=== PATIENT | male | born 1945 | race Caucasian/White ===

== ENCOUNTER 2021-12-19 06:01 | Inpatient (IN) | payer OTHER, MEDICARE ==
[~2021-12-19] VITALS: Ht 175.3 cm; Wt 85.0 kg
[~2021-12-19 06:01] MED LIST: ASPI325 PO; ATEN50 PO; CEPH500 PO; Percocet 5-3251 EACH PO; SIMV40 PO
[2021-12-19 06:19] LABS: BASOPHILS ABSOLUTE AUTO 0.14 K/mm3 (0.00-0.23); BASOPHILS PERCENT AUTO 1 % (0-2); EOSINOPHILS ABSOLUTE AUTO 0.24 K/mm3 (0.00-0.68); EOSINOPHILS PERCENT AUTO 1 % (0-6); Hematocrit 44.9 % (37.0-53.0); Hemoglobin 15.6 g/dL (13.5-17.5); IMMATURE GRAN ABSOLUTE AUTO 0.12 K/mm3 (0.00-0.10); IMMATURE GRAN PERCENT AUTO 1 % (0-1); LYMPHOCYTES ABSOLUTE AUTO 1.82 K/mm3 (0.84-5.20); LYMPHOCYTES PERCENT AUTO 8 % (21-46); MONOCYTES ABSOLUTE AUTO 2.04 K/mm3 (0.16-1.47); MONOCYTES PERCENT AUTO 9 % (4-13); Mean Corpuscular HGB 32.5 pg (26.0-34.0); Mean Corpuscular HGB Conc 34.7 g/dL (31.5-36.5); Mean Corpuscular Volume 94 fL (80-100); Mean Platelet Volume 9.1 fL (9.1-12.4); NEUTROPHILS ABSOLUTE AUTO 19.77 K/mm3 (1.96-9.15); NEUTROPHILS PERCENT AUTO 82 % (41-73); Platelet Count 256 K/mm3 (150-400); RDW Standard Deviation 45.1 fL (35.1-46.3); White Blood Cell Count 24.13 K/mm3 (4.00-11.30)
[2021-12-19 06:40] LABS: Albumin, Blood 3.3 g/dL (3.4-5.0); Albumin/Globulin Ratio 0.8 (0.8-1.8); Bilirubin, Total 0.6 mg/dL (0.1-1.0); Bun/Creatinine Ratio 17.9 (12.0-20.0); Calcium, Blood 9.2 mg/dL (8.5-10.1); Creatinine, Blood 1.23 mg/dL (0.60-1.20); Globulin, Blood 4.1 g/dL (2.2-4.0); Potassium, Blood 4.2 mmol/L (3.5-5.5); Total Protein, Blood 7.4 g/dL (6.4-8.2)
[2021-12-19 07:28] LABS: Influenza A, PCR NEGATIVE (NEGATIVE); Influenza B, PCR NEGATIVE (NEGATIVE); Resp Syncytial Virus, PCR NEGATIVE (NEGATIVE); SARS-Cov-2 (COVID-19) PCR, MMC NEGATIVE (NEGATIVE)
[2021-12-19 07:45] LABS: Source, Urine Clean Catch
[2021-12-19 07:53] LABS: Bilirubin, Urine Neg (Neg); Blood, Urine 1+ (Neg); Glucose Qualitative, Urine Neg (Neg); Ketones, Urine Neg (Neg); Leukocyte Esterase, Urine 3+ (Neg); Nitrite, Urine Neg (Neg); Protein, Urine 1+ (Neg); Urobilinogen, Urine NORM (Normal)
[2021-12-19 08:04] LABS: Appearance, Urine Hazy (Clear); Bacteria Mod /hpf; Color, Urine Yellow (P-Yellow); Squamous Epithelial Cells Few /hpf (Few); White Blood Cells, Urine 25-50 /hpf (0-5)
[2021-12-19 09:45] LABS: Bicarbonate Venous 25.1 mmol/L (24.0-30.0); PCO2 Venous 46.8 mmHg (38-42); pH Blood Venous 7.37 (7.34-7.37)
--- NOTE | 2021-12-19 16:28 | NUR ---
1127- PT ADMITTED TO ROOM 336 FROM ED, STRETCHER TO BED TX. PT CONFUSED AND WANTS TO GO HOME. ORIENTED TO ROOM SET UP AND SAFETY. AT BEDSIDE BUT GOING HOME TO LET DOGS OUT. PT IS FORGETFUL AND CONT ASKING WHERE IS. ATTEMPTS TO GET OOB, AND REMINDED HE NEEDS TO ASK FOR HELP. SETTING BED ALARM. WILL JOSE MARIA CLOSELY.
--- NOTE | 2021-12-19 17:47 | NUR ---
SUMMARY- PT UP IN THE CHAIR MOST OF THE DAY- CHAIR ALARM SET OFF FEQ- PT IMPULSIVE AND FORGETFUL. O2 2L NC. CRACKLES POST LOWER HALF, SATS 96% 2L. AMBULATED IN YUEN 100FT BEFORE DINNER TO HELP GET HIS WIGGLES OUT. TOLERATING FOOD AND FLUIDS. HAS HOWE (NORMALLY SELF CATH AT HOME X4-5). FAMILY FREQ IN ROOM SUPPORTIVE IN CARE. HOME FOR THE NIGHT TO CARE FOR ANIMALS AND REST. PT PULLED OUT ONE IV IN L HAND AND DEV A HEMATOMA. BED CHANGED AND FLOOR MOPPED. WILL REPORT TO SPEECH THERAPIST.
[2021-12-19] MEDS ORDERED: Flonase 0.05% N16 GM (21:44)
[2021-12-19] MEDS ORDERED: Calcium Carbon500 MG PO (21:45)
[2021-12-19] MEDS ORDERED: SENN187 PO (21:46)
--- NOTE | 2021-12-20 03:47 | NUR ---
SUMMARY: PT ORIENTED TO SELF AND FAMILY ONLY. HE REMAINS IN KRISHNA VEST FOR CONFUSION, IMPULSIVITY, FALL RISK AND FREQ ATTEMPTS OOB BY SELF. IS AT BEDSIDE BUT ALSO STRUGGLES TO REDIRECT PT. HE PULLED HIS IV OUT, TUGS ON HOWE CATH AND REMOVES NC OFTEN. HE TYPICALLY SELF CATHS QID BUT IS UNABLE TO DO SO AT PRESENT R/T AMS. HOWE REMAINS IN PLACE AND IS PATENT/DRAINING TO GRAVITY. 2L O2 VIA NC IS REQ'D TO MAINTAIN SPO2 WNL BUT PT IS ON RA AT BASELINE. CRACKLES NOTED TO BILAT BASES AND OCC BELT BRANDER HACKING COUGH PERSISTS. LR COMPLETED PER EMAR PRIOR TO PT REMOVING HIS IV BUT IT WILL NEED REPLACED FOR IV ABX ON DAY SHIFT. NO ACUTE CHANGES, VSS/AFEBRILE. WCTM AND REPORT TO DAY RN.
[2021-12-20 05:22] LABS: Hematocrit 42.3 % (37.0-53.0); Hemoglobin 14.6 g/dL (13.5-17.5); Mean Corpuscular HGB 32.4 pg (26.0-34.0); Mean Corpuscular HGB Conc 34.5 g/dL (31.5-36.5); Mean Corpuscular Volume 94 fL (80-100); Mean Platelet Volume 9.2 fL (9.1-12.4); Platelet Count 231 K/mm3 (150-400); RDW Coefficient Variation 13.2 % (11.7-14.2); RDW Standard Deviation 45.2 fL (35.1-46.3); White Blood Cell Count 21.66 K/mm3 (4.00-11.30)
[2021-12-20 05:49] LABS: Bun/Creatinine Ratio 20.8 (12.0-20.0); Calcium, Blood 8.8 mg/dL (8.5-10.1); Creatinine, Blood 1.06 mg/dL (0.60-1.20); Potassium, Blood 4.1 mmol/L (3.5-5.5); Thyroid Stimulating Hormone 0.309 uIU/mL (0.360-4.800)
--- NOTE | 2021-12-20 17:48 | NUR ---
SHIFT SUMMARY PATIENT MEDICATED X1 FOR HEADACHE. PATIENT DENIES NAUSEA AND SHORTNESS OF BREATH. PATIENT ON 2L VIA N/C. PATIENT MAINTAINING SATS ABOVE 90%. PATIENT DID DESAT WITH ACTIVITY WITH PT. PATIENT WORKED WITH PT AND OT TODAY. PT IS RECOMMENDING HOME WITH HOME HEALTH. OT DID A COGNITIVE EVAL, SEE NOTE. PATIENT TAKEN OUT OF RESTRAINTS THIS MORNING. PATIENT A&O 2-3. UNSURE OF DATE, OCASSIONALLY UNSURE OF EVENT. PATIENT EASILY REDIRECTED. PATIENT HAD TO BE REDIRECTED MULTIPLE TIMES AFTER FOUND PULLING ON HOWE AND TAKING OXYGEN OFF. PATIENT AT BEDSIDE FOR MOST OF DAY. PATIENT IS EATING AND DRINKING WELL. PATIENT IS PLEASANT AND COOPERATIVE WITH CARE. NEW IV PLACED. PATIENT VERY PLEASANT AND COOPERATIVE WITH CARE.
[2021-12-21 04:39] LABS: BASOPHILS ABSOLUTE AUTO 0.11 K/mm3 (0.00-0.23); BASOPHILS PERCENT AUTO 1 % (0-2); EOSINOPHILS ABSOLUTE AUTO 0.51 K/mm3 (0.00-0.68); EOSINOPHILS PERCENT AUTO 4 % (0-6); Hematocrit 41.9 % (37.0-53.0); Hemoglobin 14.2 g/dL (13.5-17.5); IMMATURE GRAN ABSOLUTE AUTO 0.05 K/mm3 (0.00-0.10); IMMATURE GRAN PERCENT AUTO 0 % (0-1); LYMPHOCYTES ABSOLUTE AUTO 3.18 K/mm3 (0.84-5.20); LYMPHOCYTES PERCENT AUTO 24 % (21-46); MONOCYTES ABSOLUTE AUTO 1.04 K/mm3 (0.16-1.47); MONOCYTES PERCENT AUTO 8 % (4-13); Mean Corpuscular HGB Conc 33.9 g/dL (31.5-36.5); Mean Corpuscular Volume 94 fL (80-100); Mean Platelet Volume 9.3 fL (9.1-12.4); NEUTROPHILS ABSOLUTE AUTO 8.51 K/mm3 (1.96-9.15); NEUTROPHILS PERCENT AUTO 64 % (41-73); Platelet Count 230 K/mm3 (150-400); RDW Coefficient Variation 13.2 % (11.7-14.2); RDW Standard Deviation 45.7 fL (35.1-46.3); Red Blood Cell Count 4.44 M/mm3 (4.30-5.90)
[2021-12-21 04:58] LABS: Albumin, Blood 2.8 g/dL (3.4-5.0); Anion Gap 5 mmol/L (6-16); Blood Urea Nitrogen 28 mg/dL (8-24); Bun/Creatinine Ratio 23.7 (12.0-20.0); CO2, Blood 27 mmol/L (21-32); Calcium, Blood 8.7 mg/dL (8.5-10.1); Chloride, Blood 107 mmol/L (98-108); Creatinine, Blood 1.18 mg/dL (0.60-1.20); Glomerular Filtration Rate 63 (60-); Glucose, Blood 88 mg/dL (70-99); Phosphorus, Blood 2.5 mg/dL (2.5-4.9); Potassium, Blood 3.8 mmol/L (3.5-5.5); Sodium, Blood 139 mmol/L (136-145)
--- NOTE | 2021-12-21 05:23 | NUR ---
NIGHTSHIFT SUMMARY Patient alert/oriented to self/place/family. Restless in chair, attempting to get OOB w/o help. Staff SBA, while patient walked to BR. Patient standing in bathroom, pulling apart maza, removed stat lock. Replaced statlock, helped patient to the chair. at bedside, appears forgetful, verbalized feeling upset, because we did not help the patient, reminded that nurse helped patient to bed and fixed catheter statlock. states she doesn't remember. Granddaughter at bedside, stated patient usually cares for , but d/t to infection is hospitlized and AMS. Concern for /patient safety d/t AMS. SS consult ordered. Christian vest applied for safety, bed alarm/activated audible, reminded pt/ to use call-light to help patient get OOB. Patient slept comfortably all night, respirations even/nonlabored. Maza catheter patent, draining to gravity. Will continue to monitor.
--- NOTE | 2021-12-21 14:42 | NUR ---
DAUGHTER IN LAW LATHA PATEL [phone], AT BEDSIDE. STEP SON JOE PATEL [phone], AT BEDSIDE. PT GAVE A VERBAL CONSENT FOR MEDICAL STAFF TO SPEAK WITH SHEILA. LATHA REQUESTS A CALL FROM CARE MANAGEMENT TO DISCUSS PT'S INDEPENDENT LIVING SITUATION. LATHA STATES THERE ARE TWO STEPS UP TO FRONT DOOR, TWO STEPS OUT THE BACK DOOR. THERE IS ONE STEP IN THE LIVING ROOM. LEVEL FLOOR TO THE BATHROOM AND THE BEDROOM. RUNNING WATER, ELECTRICITY. BACKUP GENERATOR INSTALLED TO AUTOMATICALLY TURN ON.
--- NOTE | 2021-12-21 17:20 | NUR ---
SHIFT SUMMARY FAMILY AT BEDSIDE FOR SEVERAL HOURS THIS SHIFT. FAMILY IS AWARE OF THE HOSPITAL'S CONCERNS FOR SAFETY AT NIGHT, PT HAS BEEN MORE CONFUSED AT NIGHT THE PAST TWO NOCS IN HOSPITAL. FAMILY STATES LATIA AND HIS ARE IN A SAFE LIVING ARRANGEMENT, INDEPENDENT WITH FAMILY NEARBY. RESTRAINTS WERE DISCONTINUED AT 1030. SINCE THEN, PT HAS ATTEMPTED TO GET OUT OF BED AT LEAST 4 TIMES, BUT THE BED ALARM/CHAIR ALARM HAVE ALERTED STAFF TO INTERVENE. EACH TIME, PT STATES HE DIDN'T KNOW HE HAD TO CALL FOR HELP. MOST RECENTLY, HIS WAS AT BEDSIDE AND HIS STATED SHE DIDN'T KNOW SHE NEEDED TO CALL FOR HELP. PT IS COMPLIANT WITH MEDICATIONS AND TREATMENTS. HE IS ON 2LPM VIA NC, BASELINE IS ROOM AIR. IV IN LEFT AC. RN WILL CONTINUE TO MONITOR AND REPORT TO ONCOMING NURSE.
--- NOTE | 2021-12-22 05:05 | NUR ---
SHIFT SUMMARY: PT A/O X 3, FORGETFUL AND IMPULSIVE AT TIMES. STANDBY ASSIST WITH WALKER DUE TO OXYGEN LINE AND HOWE CATHETER. HOWE DRAINING CLEAR YELLOW URINE. CONTINUES TO BE ON 2 LPM VIA NC. LS CLEAR CONTINUES TO HAVE OCCASIONAL COUGH. PT DENIED PAIN THROUGH THE NIGHT. STAYED THE NIGHT IN ROOM WITH PT. HAD DIFFICULTY ASSISTING HER TO THE BATHROOM AND WAS REQUESTED TO USE CALL LIGHT TO GET ASSISTANCE FOR HER WHEN NEEDED BUT SHE WAS FORGETFUL OF USING CALL LIGHT. WOULD COME OUT TO HALLS TO FIND STAFF.
[2021-12-22 05:06] LABS: Hematocrit 43.5 % (37.0-53.0); Hemoglobin 14.9 g/dL (13.5-17.5); Mean Corpuscular HGB Conc 34.3 g/dL (31.5-36.5); Mean Corpuscular Volume 93 fL (80-100); Mean Platelet Volume 9.3 fL (9.1-12.4); Platelet Count 242 K/mm3 (150-400); RDW Coefficient Variation 12.8 % (11.7-14.2); RDW Standard Deviation 44.5 fL (35.1-46.3); Red Blood Cell Count 4.66 M/mm3 (4.30-5.90); White Blood Cell Count 9.13 K/mm3 (4.00-11.30)
[2021-12-22 05:29] LABS: Anion Gap 8 mmol/L (6-16); Blood Urea Nitrogen 22 mg/dL (8-24); Bun/Creatinine Ratio 20.2 (12.0-20.0); CO2, Blood 26 mmol/L (21-32); Calcium, Blood 8.7 mg/dL (8.5-10.1); Chloride, Blood 105 mmol/L (98-108); Creatinine, Blood 1.09 mg/dL (0.60-1.20); Glomerular Filtration Rate 69 (60-); Glucose, Blood 104 mg/dL (70-99); Phosphorus, Blood 2.7 mg/dL (2.5-4.9); Potassium, Blood 3.9 mmol/L (3.5-5.5); Sodium, Blood 139 mmol/L (136-145)
[2021-12-22] MEDS ORDERED: GUAI600T33 PO (12:24)
[2021-12-22] MEDS ORDERED: FLUTICASONE-SA1 EAC2 INH (12:24)
[2021-12-22] MEDS ORDERED: LEVO750 PO (12:25)
[2021-12-22] MEDS ORDERED: MIRALAX17 GM PO (12:26)
[2021-12-22] MEDS ORDERED: VISBIOME 112.51 EACH (12:27)
[2021-12-22] MEDS ORDERED: THERA-D2000 UNIT PO (12:28)
[2021-12-22] MEDS ORDERED: ALBU90OI INH (12:29)
--- NOTE | 2021-12-22 15:36 | NUR ---
PT DISCHARGED FROM THE UNIT. IV REMOVED. DISCHARGE INSTRUCTIONS REVIEWED AND SENT WITH PT. SHYAM LEFT IN PER DR REQUEST. WILL STAY IN ONE WEEK THEN PT WILL RESUME STRAIGHT CATH AT HOME. HIS AND GRANDAUGHTER WERE AT BEDSIDE DURING DISCHARGE. PT LEFT UNIT VIA WHEEL CHAIR.
== END 2021-12-22 13:41 | disposition home health service (06) | DRG 698 ==
LOC: ER 06:01 → MEDS 08:53
PROVIDERS: Emergency Medicine; Internal Medicine; ADMIT Internal Medicine
DX: T83.511A Infection and inflammatory reaction due to indwelling urethral catheter, initial encounter (principal); G92.8 Other toxic encephalopathy; J96.01 Acute respiratory failure with hypoxia; I67.89 Other cerebrovascular disease; N39.0 Urinary tract infection, site not specified; B95.2 Enterococcus as the cause of diseases classified elsewhere; B96.89 Other specified bacterial agents as the cause of diseases classified elsewhere; J84.10 Pulmonary fibrosis, unspecified; I10 Essential (primary) hypertension; E11.9 Type 2 diabetes mellitus without complications; Y84.6 Urinary catheterization as the cause of abnormal reaction of the patient, or of later complication, without mention of misadventure at the time of the procedure; E86.0 Dehydration; N28.9 Disorder of kidney and ureter, unspecified; Z20.822 Contact with and (suspected) exposure to COVID-19; E78.00 Pure hypercholesterolemia, unspecified; Z79.899 Other long term (current) drug therapy; Z79.82 Long term (current) use of aspirin; Z79.891 Long term (current) use of opiate analgesic; Z79.2 Long term (current) use of antibiotics; Z87.891 Personal history of nicotine dependence
CPT/HCPCS: 0241U; 36415; 51701; 51702; 70450; 71045; 71250; 80048; 80053; 80069; 81001; 82803; 84145; 84443; 84484; 85025; 85027; 87077; 87086; 87186; 93005; 93010; 94640; 94664; 94760; 94761; 96365-59; 96375-59; 97110; 97116; 97129; 97161; 97166; 97530; 99285-25; A9270; J0456; J0696; J1650; J2930; J7030; J7050; J7120

== ENCOUNTER 2023-02-27 17:53 | Inpatient (IN) | payer OTHER ==
[~2023-02-27] VITALS: Ht 177.8 cm; Wt 68.3 kg
[2023-02-27] VITALS (7 sets, daily range): BP systolic 96–112; BP diastolic 47–72
[~2023-02-27 17:53] MED LIST changes: +ALBU90OI INH; +Calcium Carbon500 MG PO; +FLUTICASONE-SA1 EAC2 INH; +Flonase 0.05% N16 GM; +GUAI600T33 PO; +LEVO750 PO; +MIRALAX17 GM PO; +SENN187 PO; +THERA-D2000 UNIT PO; +VISBIOME 112.51 EACH
[2023-02-27 18:32] LABS: BASOPHILS ABSOLUTE AUTO 0.05 K/mm3 (0.00-0.23); BASOPHILS PERCENT AUTO 0 % (0-2); EOSINOPHILS ABSOLUTE AUTO 0.01 K/mm3 (0.00-0.68); EOSINOPHILS PERCENT AUTO 0 % (0-6); Hematocrit 47.1 % (37.0-53.0); Hemoglobin 16.1 g/dL (13.5-17.5); IMMATURE GRAN ABSOLUTE AUTO 0.23 K/mm3 (0.00-0.10); IMMATURE GRAN PERCENT AUTO 1 % (0-1); LYMPHOCYTES ABSOLUTE AUTO 1.14 K/mm3 (0.84-5.20); LYMPHOCYTES PERCENT AUTO 6 % (21-46); MONOCYTES ABSOLUTE AUTO 1.15 K/mm3 (0.16-1.47); MONOCYTES PERCENT AUTO 6 % (4-13); Mean Corpuscular HGB 33.2 pg (26.0-34.0); Mean Corpuscular HGB Conc 34.2 g/dL (31.5-36.5); Mean Corpuscular Volume 97 fL (80-100); Mean Platelet Volume 9.2 fL (9.1-12.4); NEUTROPHILS ABSOLUTE AUTO 15.79 K/mm3 (1.96-9.15); NEUTROPHILS PERCENT AUTO 86 % (41-73); NRBC ABSOLUTE 0.06 K/mm3 (0.00-0.02); NRBC Auto 0.3 /100 WBC (0.0-0.2); Platelet Count 314 K/mm3 (150-400); RDW Coefficient Variation 15.3 % (11.7-14.2); RDW Standard Deviation 50.1 fL (35.1-46.3); Red Blood Cell Count 4.85 M/mm3 (4.30-5.90); White Blood Cell Count 18.37 K/mm3 (4.00-11.30)
[2023-02-27 18:55] LABS: Source, Urine Foley catheter
[2023-02-27 18:59] LABS: Appearance, Urine Hazy (Clear); Bilirubin, Urine Neg (Neg); Blood, Urine 4+ (Neg); Color, Urine Yellow (P-Yellow); Glucose Qualitative, Urine Neg (Neg); Ketones, Urine Neg (Neg); Leukocyte Esterase, Urine 3+ (Neg); Nitrite, Urine Neg (Neg); Protein, Urine 2+ (Neg); Urobilinogen, Urine NORM (Normal)
[2023-02-27 19:07] LABS: Magnesium, Blood 2.8 mg/dL (1.6-2.4)
[2023-02-27 19:25] LABS: Bacteria Many /hpf; Squamous Epithelial Cells Few /hpf (Few); White Blood Cells, Urine TNTC /hpf (0-5)
[2023-02-27 19:30] LABS: Base Excess Venous -6.2 mmol/L; Bicarbonate Venous 18.5 mmol/L (24.0-30.0); PCO2 Venous 47.8 mmHg (38-42); pH Blood Venous 7.25 (7.34-7.37)
[2023-02-27 19:39] LABS: Albumin, Blood 2.8 g/dL (3.4-5.0); Albumin/Globulin Ratio 0.7 (0.8-1.8); Bilirubin, Total 0.6 mg/dL (0.1-1.0); Bun/Creatinine Ratio 37.4 (12.0-20.0); Calcium, Blood 8.9 mg/dL (8.5-10.1); Creatinine, Blood 2.06 mg/dL (0.60-1.20); Globulin, Blood 4.2 g/dL (2.2-4.0); Potassium, Blood 5.9 mmol/L (3.5-5.5)
[2023-02-27 21:09] LABS: International Normalized Ratio 1.44; Prothrombin Time Results 14.8 Sec (9.7-11.5)
[2023-02-27 21:36] LABS: Influenza A, PCR NEGATIVE (NEGATIVE); Influenza B, PCR NEGATIVE (NEGATIVE); Resp Syncytial Virus, PCR NEGATIVE (NEGATIVE); SARS-Cov-2 (COVID-19) PCR, MMC NEGATIVE (NEGATIVE)
--- NOTE | 2023-02-27 22:41 | NUR ---
ASSUMED CARE PT ARRIVED ON UNIT DROWSY AND ORIENTED TO SELF AND TOWN. PT STATES HE DOES NOT KNOW WHAT BUILDING WE'RE IN, OR WHAT YEAR; ABLE TO STATE HE'S IN GOVERNMENT CAMP AND GIVE ACCURATE BIRTHDATE. GRANDDAUGHTER AND STEP-DAUGHTER AT BEDSIDE STATING THAT PT'S ORIENTATION IS SIMILAR TO BASELINE. APPEARS THAT SON AND DAUGHTER ARE NOT "CLOSE" TO PT, PER GRANDDAUGHTER. IT APPEARS THAT GRANDDAUGHTER IS MORE FAMILIAR W/ PT'S HEALTHCARE; STATES THAT SHE WAS INVOLVED IN HELPING MANAGE MEDICATIONS, BUT THAT PT AND EVENTUALLY REFUSED HELP. SPO2 >92% ON 6LNC; MAP 60~'S (DR FAN NOTIFIED W/ ORDERS FOR 250ML BOLUS); HR 60'S. HOWE PATENT AND DRAINING TO GRAVITY. CRACKLES NOTED IN LEFT LUNG BASE. PERRLA.
[2023-02-27 23:02] LABS: PCO2 Arterial 41.7 mmHg (35-45); PO2 Arterial 116 mmHg (80-100); pH Blood Arterial 7.28 (7.35-7.45)
[2023-02-28] VITALS (69 sets, daily range): BP systolic 83–125; BP diastolic 43–90
--- NOTE | 2023-02-28 00:59 | NUR ---
UPDATE UNABLE TO GIVE ACCURATE HOME SAFETY ASSESSMENT. UNABLE TO SKIP HOME SAFETY ASSESSMENT IN ADMISSION ASSESSMENT SO ANSWERS WERE PUT IN, BUT NOT CORRECT.
--- NOTE | 2023-02-28 01:17 | NUR ---
UPDATE DR ORELLANA CALLED D/T PT'S CONTINUED HYPOTENSION MAP 60~. LEVOPHED ORDERED FOR PERIPHERAL (DRAWS BLOOD).
--- NOTE | 2023-02-28 03:12 | NUR ---
UPDATE CALLED DR ORELLANA D/T PT REPEATEDLY PULLING AT LINES, CORDS, AND OXYGEN MASK. PT DOES NOT APPEAR TO BE IN DISTRESS. REPEATED REORIENTATION AND REDIRECTION WORKS TEMPORARILY; PT ALMOST IMMEDIATELY RESUMES PREVIOUS BEHAVIOR. ORDERS FOR BUE SOFT MITTS.
[2023-02-28 03:57] LABS: Base Excess Venous -5.8 mmol/L; Bicarbonate Venous 18.9 mmol/L (24.0-30.0); PCO2 Venous 57.2 mmHg (38-42)
[2023-02-28 04:07] LABS: BASOPHILS ABSOLUTE AUTO 0.05 K/mm3 (0.00-0.23); BASOPHILS PERCENT AUTO 0 % (0-2); EOSINOPHILS ABSOLUTE AUTO 0.02 K/mm3 (0.00-0.68); EOSINOPHILS PERCENT AUTO 0 % (0-6); Hematocrit 47.2 % (37.0-53.0); Hemoglobin 16.3 g/dL (13.5-17.5); IMMATURE GRAN ABSOLUTE AUTO 0.18 K/mm3 (0.00-0.10); IMMATURE GRAN PERCENT AUTO 1 % (0-1); LYMPHOCYTES ABSOLUTE AUTO 1.52 K/mm3 (0.84-5.20); LYMPHOCYTES PERCENT AUTO 8 % (21-46); MONOCYTES ABSOLUTE AUTO 0.94 K/mm3 (0.16-1.47); MONOCYTES PERCENT AUTO 5 % (4-13); Mean Corpuscular HGB 33.1 pg (26.0-34.0); Mean Corpuscular HGB Conc 34.5 g/dL (31.5-36.5); Mean Corpuscular Volume 96 fL (80-100); Mean Platelet Volume 9.4 fL (9.1-12.4); NEUTROPHILS ABSOLUTE AUTO 15.88 K/mm3 (1.96-9.15); NEUTROPHILS PERCENT AUTO 85 % (41-73); NRBC ABSOLUTE 0.06 K/mm3 (0.00-0.02); NRBC Auto 0.3 /100 WBC (0.0-0.2); Platelet Count 327 K/mm3 (150-400); RDW Coefficient Variation 15.1 % (11.7-14.2); RDW Standard Deviation 49.1 fL (35.1-46.3); Red Blood Cell Count 4.93 M/mm3 (4.30-5.90); White Blood Cell Count 18.59 K/mm3 (4.00-11.30)
--- NOTE | 2023-02-28 04:25 | NUR ---
UPDATE 02/17 15L BLEED IN BIPAP. CRITICAL pH CALLED TO DR ORELLANA W/ ORDERS FOR BIPAP AND VBG IN 3 HOURS. ORDERS FOR 0.25MG ATIVAN IV TO HELP W/ AGITATION IF MITTS ARE NOT SUFFICIENT TO HELP MANAGE PT'S AGITATION. NO OTHER ORDERS AT THIS TIME.
[2023-02-28 05:05] LABS: Albumin, Blood 2.7 g/dL (3.4-5.0); Albumin/Globulin Ratio 0.7 (0.8-1.8); Bilirubin, Total 0.4 mg/dL (0.1-1.0); Bun/Creatinine Ratio 37.5 (12.0-20.0); Calcium, Blood 8.3 mg/dL (8.5-10.1); Creatinine, Blood 2.16 mg/dL (0.60-1.20); Globulin, Blood 3.8 g/dL (2.2-4.0); Potassium, Blood 5.2 mmol/L (3.5-5.5); Total Protein, Blood 6.5 g/dL (6.4-8.2)
--- NOTE | 2023-02-28 05:43 | NUR ---
SHIFT SUMMARY PT REMAINS IN MITTS AND BIPAP; 12/8 W/ 10L BLEED IN. PT HAS BECOME LESS AGITATED AND INTERMITTENTLY PULLS AT MITTS; HAVE NOT OBSERVED PT PULL AT LINES, CORDS, OR BIPAP. GRANDDAUGHTER CALLED THIS RN IN THE AM AND GIVEN UPDATE. HOWE CATHETER PATENT AND DRAINING TO GRAVITY. RIGHT AC SITE WNL W/ LEVOPHED INFUSING (SEE FLOWSHEET). HOWE CATHETER PATENT AND DRAINING TO GRAVITY.
[2023-02-28 06:58] LABS: pH Blood Venous 7.24 (7.34-7.37)
[2023-02-28 06:59] LABS: Base Excess Venous -4.9 mmol/L; Bicarbonate Venous 19.8 mmol/L (24.0-30.0)
--- NOTE | 2023-02-28 09:00 | NUR ---
SHIFT ASSESSMENT ASSUMED CARE OF PT @ 0700, BEDSIDE REPORT RECEIVED FROM [facility] NURSE. PT SLEEPING BUT AWAKENS EASILY TO VERBAL STIMULI. IN BL MITTS DUE TO PULLING OFF BIPAP AND LINES, REDIRECTABLE BUT FORGETFUL. ABLE TO STATE NAME AND BUT UNSURE OF LOCATION OR EVENTS LEADING UP TO HOSPITAL STAY. FOLLOWS SIMPLE COMMANDS, PAUL, ASSISTING WITH TURNS BUT VERY WEAK. ON LOW DOSE LEVOPHED FOR MAP GOAL >65, SEE FLOWSHEET. LS QUITE DIMINISHED ON R SIDE. ON BIPAP 15/10 c 8L, SATS >90%. HOWE CATH PATENT, DRAINING YELLOW URINE.
[2023-02-28] MEDS ORDERED: ALFU10 PO (12:07)
[2023-02-28] MEDS ORDERED: ZYRTEC10 M2 PO (12:08)
[2023-02-28] MEDS ORDERED: FINA5 PO (12:09)
[2023-02-28] MEDS ORDERED: QUET25 PO (12:10)
[2023-02-28] MEDS ORDERED: LOSA50 PO (12:10)
[2023-02-28] MEDS ORDERED: ANORO ELLIPTA1 EACH INH (12:11)
[2023-02-28 14:11] LABS: PCO2 Arterial 53.1 mmHg (35-45); PO2 Arterial 101 mmHg (80-100); pH Blood Arterial 7.23 (7.35-7.45)
--- NOTE | 2023-02-28 14:23 | NUR ---
Spiritual Care Visit. Pt. is awake in bed. Family are at bedside and welcome my visit. Facilitate a life review and introduce myself. Pt. displays some awareness, but communicates only with nods. Family display evidence of being supportive. Pt. welcomed this machine plug shaper to pray for him with a nod. Prayed for Pt. Family verbalized gratitude for the spiritual care visit and welcomed this machine plug shaper to return. Will remain available to the Pt. and family.
--- NOTE | 2023-02-28 16:29 | NUR ---
"Spiritual Care | Comfort Care Pt. is awake and though he can't speak well displays evidence of being aware and responsive. Spouse is at Bedside. Family members welcome my visit, and request that I pray for Pt. Prayed with Pt. Pastoral care and support is given to the spouse. facilitated a life review with the Spouse. More family memebrs arrive. Pts. daughter and spouse both verbalize gratitude for the spiritual care visit."
--- NOTE | 2023-02-28 17:17 | NUR ---
Pt going comfort care. Family met with pt's Marina, who is very tearful and stated concern that family might blame her for her decision. However, the patient's extended family at the bedside reassured her that they understand and agree with the decision to begin comfort care. Dr Amor was also present along with this RN for the meeting.
--- NOTE | 2023-02-28 17:40 | NUR ---
SHIFT SUMMARY PT NOW COMFORT CARE, DECISION MADE WITH EXTENDED FAMILY, DR KENDALL, ALLISON RN, AND THIS NURSE AT BEDSIDE. PT REMAINS ALERT TO PERSON AND FAMILY. APPEARS COMFORTABLE AT THIS TIME WITH BIPAP AND MITTS REMOVED. FOLLOWING SIMPLE COMMANDS. LEVOPHED OFF. ON 5LPM VIA NC c SATS >95%. HOWE CATH REMAINS IN PLACE, DRAINING JORDAN URINE.
--- NOTE | 2023-03-01 00:51 | NUR ---
update PT BREATHING APPEARS TO BE MORE AGONAL; ROXANOL GIVEN PER EMAR. GRANDDAUGHTER CALLED TO UPDATE ABOUT POSSIBILITY THAT PT PASSES TONIGHT; ALSO INFORMED PT THAT THIS MAY NOT BE THE CASE AND THAT PT MAY PERSIST. FAMILY NOW AT BEDSIDE. GRANDDAUGHTER STATED TO THIS RN ABOUT WISH TO REMOVE THE 6L NC; AND THAT DOES NOT WANT TO PROLONG PT'S "SUFFERING". INFORMED GRANDDAUGHTER ABOUT WEDDING RING BANDS.
--- NOTE | 2023-03-01 00:57 | NUR ---
UPDATE OXYGEN TAKEN OFF PT; , GRANDDAUGHTER, AND FAMILY MEMBER AT BEDSIDE. 2 YELLOW RINGS THAT WAS STORED IN LOCKBOX EARLIER THIS SHIFT (SEE PREVIOUS NOTE) GIVEN TO .
--- NOTE | 2023-03-01 02:29 | NUR ---
UPDATE PT TOD IS 0224. FAMILY NOTIFIED THIS RN FOR WISH THAT PT GO TO [facility] IN [place].
--- NOTE | 2023-03-01 02:34 | NUR ---
UPDATE DR ORELLANA NOTIFIED ABOUT PT'S PASSING AND TOD.
== END 2023-03-01 02:24 | DRG 871 ==
LOC: ER 17:53 → ICUE 20:13
PROVIDERS: Emergency Medicine; Internal Medicine; Student in an Organized Health Care Education/Training Program; ADMIT Internal Medicine
PROC: 5A09457 Assistance with Respiratory Ventilation, 24-96 Consecutive Hours, Continuous Positive Airway Pressure (ICD-10-PCS; principal; 2023-02-27)
PROC: 3E033XZ Introduction of Vasopressor into Peripheral Vein, Percutaneous Approach (ICD-10-PCS; 2023-02-27)
PROC: 4A133R1 Monitoring of Arterial Saturation, Peripheral, Percutaneous Approach (ICD-10-PCS; 2023-02-27)
DX: A41.9 Sepsis, unspecified organism (principal); G93.41 Metabolic encephalopathy; J18.9 Pneumonia, unspecified organism; J96.01 Acute respiratory failure with hypoxia; R65.21 Severe sepsis with septic shock; J96.02 Acute respiratory failure with hypercapnia; K72.00 Acute and subacute hepatic failure without coma; N39.0 Urinary tract infection, site not specified; T83.511A Infection and inflammatory reaction due to indwelling urethral catheter, initial encounter; N17.9 Acute kidney failure, unspecified; C22.8 Malignant neoplasm of liver, primary, unspecified as to type; E87.20 Acidosis, unspecified; E87.1 Hypo-osmolality and hyponatremia; I50.32 Chronic diastolic (congestive) heart failure; I13.0 Hypertensive heart and chronic kidney disease with heart failure and stage 1 through stage 4 chronic kidney disease, or unspecified chronic kidney disease; Z51.5 Encounter for palliative care; Z11.52 Encounter for screening for COVID-19; N18.30 Chronic kidney disease, stage 3 unspecified; E87.5 Hyperkalemia; F03.C0 Unspecified dementia, severe, without behavioral disturbance, psychotic disturbance, mood disturbance, and anxiety; R62.7 Adult failure to thrive; E78.5 Hyperlipidemia, unspecified; J84.10 Pulmonary fibrosis, unspecified; E11.22 Type 2 diabetes mellitus with diabetic chronic kidney disease; Z99.81 Dependence on supplemental oxygen; Z68.24 Body mass index [BMI] 24.0-24.9, adult
CPT/HCPCS: 0241U; 36415; 36600; 51702; 51798; 70450; 71045; 76705; 80053; 81001; 82803; 82947; 83605; 83690; 83735; 83880; 84484; 85025; 85610; 87077; 87086; 87186; 93005; 93010; 93306; 94640; 94660; 94664; 94762; 96361; 96374; 99285-25; A9270; J0456; J0612; J1650; J1815; J2060; J2543; J3370; J7030; J7050; J7060